=== PATIENT | male | born 1980 | race Caucasian/White ===

== ENCOUNTER 2016-06-29 11:17 | Inpatient (IN) | payer OTHER ==
[~2016-06-29] VITALS: Ht 170.2 cm; Wt 74.4 kg
[2016-06-29] MEDS ORDERED: IBUPROFEN 600 MG TABLET PO PRN (15:15)
[2016-06-29] MEDS ORDERED: LOPERAMIDE HCL 2 MG CAPSULE PO PRN ×2 (15:15)
[2016-06-29] MEDS ORDERED: LORAZEPAM 2 MG/1 ML VIAL IM PRN (15:15)
[2016-06-29] MEDS ORDERED: DICYCLOMINE HCL 20 MG TABLET PO PRN (15:15)
[2016-06-29] MEDS ORDERED: CLONIDINE HCL 0.1 MG TABLET PO PRN (15:15)
[2016-06-29] MEDS ORDERED: LORAZEPAM 1 MG TABLET PO PRN (15:15)
[2016-06-29] MEDS ORDERED: HYDROXYZINE PAMOATE 25 MG CAPSULE PO PRN (15:15)
[2016-06-29] MEDS ORDERED: ONDANSETRON 4 MG/2 ML VIAL IM PRN (15:15)
[2016-06-29] MEDS ORDERED: THIAMINE HCL 200 MG/2 ML VIAL IM ONE (15:15)
[2016-06-29] MEDS ORDERED: ACETAMINOPHEN 325 MG TABLET PO PRN (15:15)
[2016-06-29] MEDS ORDERED: MIRALAX 17 GM POWD.PACK PO PRN (15:15)
[2016-06-29] MEDS ORDERED: METHOCARBAMOL 750 MG TABLET PO PRN (15:15)
[2016-06-29] MEDS ORDERED: MAG HYDROX/AL HYDROX/SIMETH 30 ML LIQUID UDC PO PRN (15:15)
[2016-06-29] MEDS ORDERED: ONDANSETRON ODT 4 MG TAB.RAPDIS SL PRN (15:15)
[2016-06-29] MEDS ORDERED: MAGNESIUM HYDROXIDE 30 ML LIQUID UDC PO PRN (15:15)
--- NOTE | 2016-06-29 15:38 | NUR ---
ADMISSION Pt 36 y/o male from home admitted for heroin suboxone xanax adn percocet dependence. Pt alert and oriented to name, place, and time. Perrla with bilateral pupils moderately dilated. respirations even and unlabored. Bilateral hand tremors noted slightly. Pt fidgety during assessment, could not sit still, and kept moving around in bed. Pt with c/o stomach cramps. Pt also with c/o chills and sweats. Pt was seen by Dr. Beard. Initial cows=12 ciwa=8. Pt stated NKA. Pt was oriented to room and unit. Bed on lowest position with side rails x2 up fro safety. Call light within reach. Pt denies being hospitalized within the last month. pt denies any sz history. Pt denies any PCP. substance hx - heroin IV ( 20 years) 2gm daily x2 week, last used06/28/16 2+gm -suboxone SL ( 10 years) 8-12mg daily x3 months, unsure of last use, but thinks 06/15/16 with unknown dosage -xanax PO (20years) 4 mg daily x 2months, last used 06/27/16 4 mg - Percocet PO (20 years) 40mg twice a week, last used 06/29/16 40 mg. tx hx - [facility] ( unknown dates) -above it all ( stated was there for about 3 weeks, but unsure of the dates) - healing properties ( unknown dates) _ pt states has been to multiple facilities , but does not remember the names or dates he was there. 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
[2016-06-29 16:00] VITALS: BP 121/87
[2016-06-29 16:14] LABS: *AMPHETAMINE, URINE NEGATIVE (NEGATIVE); *BARBITURATE, URINE NEGATIVE (NEGATIVE); *CANNABINOID, URINE NEGATIVE (NEGATIVE); *COCCAINE, URINE NEGATIVE (NEGATIVE); *OPIATE, URINE POSITIVE (NEGATIVE); *PHENCYCLIDINE SCREEN,URINE NEGATIVE (NEGATIVE)
[2016-06-29] MEDS: BUPRENORPHINE HCL 2 MG TAB.SUBL SL PRN (16:32)
--- NOTE | 2016-06-29 16:32 | NUR ---
PRN Pt with ciwa=8. Pt observed fidgety and not able to sit still, and easily irritable. Ativan po prn per MD order given and tolerated well.
[2016-06-29] MEDS: LORAZEPAM 1 MG TABLET PO PRN (16:41)
[2016-06-29] MEDS ORDERED: diphenhydrAMINE 50 MG CAPSULE PO PRN (16:42)
--- NOTE | 2016-06-29 16:42 | NUR ---
PRN Pt with cows=12. Pt with c/o chills and sweats. Pt restless, fidgety, and not able to sit still. Pt easily irritable. Subutex po prn per MD order given and tolerated well.
--- NOTE | 2016-06-29 19:15 | NUR ---
START OF SHIFT Received 36 year old male patient admitted on 06/29/16 for Xanax, and Heroin dependency. Pt is full code and reports NKA. He reports a PMHx of concussions x4, skin graft to LLE (2015), and kidney failure in Dec 2015. He reports using Heroin IV 2 gram daily for 2 weeks. Last dose was 2 gram on 06/28/16. Suboxone SL 8-12 mg daily x3 months. Last dose on 06/15/16. Xanax PO 4 mg daily for two months. Last dose 4 mg on 06/27/16. And Percocet PO 40 mg twice a week. Last dose was 40 mg on 06/29/16. Pt with order for PRN Ativan and PRN Subutex. Per endorsement, pt received PRN Subutex for COWS:12 upon admission. Pt alert and oriented x3. Pt noted to be drowsy upon start of shift. Breathing is even and unlabored, safety measures in place. Will continue to monitor.
[2016-06-29 20:00] VITALS: BP 105/61
[2016-06-29] MEDS ORDERED: diphenhydrAMINE 50 MG CAPSULE PO SCH (21:00)
--- NOTE | 2016-06-29 21:30 | NUR ---
LAB REFUSAL Pt refused lab draw and verbalized that he wants it done in the morning.
[2016-06-29] MEDS: GABAPENTIN 300 MG CAPSULE PO SCH (21:49)
--- NOTE | 2016-06-30 | NUR ---
VITALS REFUSED/ COWS & CIWA DEFERRED. Pt refused 0000 vital signs. Explained importance of assessing vital signs every 4 hours. Risks/benefits were also explained x3, pt still refused. COWS & CIWA deferred d/t order is Q4 while awake. Breathing is even and unlabored, respirations 16. Safety measures in place. Will continue to monitor. Addendum: 06/30/16 at 0245 by DIANE WALLS RN Amended: Links added.
--- NOTE | 2016-06-30 04:00 | NUR ---
VITALS REFUSED/ COWS, CIWA DEFERRED Pt refused his 0400 vital signs. Risks and benefits were explained x3, pt still refused. COWS & AIDEWA deferred d/t order is Q4 while awake. Breathing is even and unlabored. Respirations 16, will continue to monitor.
--- NOTE | 2016-06-30 06:45 | NUR ---
LAB REFUSAL Pt refusing labs. Risks/Benefits were explained x3. Pt still refused. Will endorse to oncoming nurse.
[2016-06-30] MEDS: LORAZEPAM 1 MG TABLET PO PRN ×3 (06:53→21:27)
[2016-06-30] MEDS: BUPRENORPHINE HCL 2 MG TAB.SUBL SL PRN (06:55)
--- NOTE | 2016-06-30 06:55 | NUR ---
PRN SUBUTEX/ATIVAN Pt complains of chills/sweats, moist eyes, runny nose and body aches. VS: 115/72, HR: 85, SpO2: 100% T: 98.0. COWS:12, CIWA:7. PRN Subutex and Ativan administered as ordered. Breathing even and unlabored. Safety measures in place. Will endorse to monitor effectiveness of medications.
[2016-06-30] MEDS ORDERED: DIPH25TA62 PO (07:00)
--- NOTE | 2016-06-30 07:16 | NUR ---
END OF SHIFT Pt had uneventful night. At 0655 he received PRN Subutex and Ativan for COWS:12, CIWA: 7. He refused lab draw at 2130 and 0645. He refused 0000 and 0400 vitals signs after explaining importance of monitoring vital signs every 4 hours. He slept a total of 8 hrs, Intake: 500 mL, Void: x1, BM:0. Pt noted with no s/s of distress. Breathing is even and unlabored. Safety measures in place. Endorsed to oncoming nurse.
[2016-06-30 08:00] VITALS: BP 114/63
--- NOTE | 2016-06-30 08:11 | NUR ---
START OF SHIFT/PRN EFFECTIVENESS Received pt this am aox4 awake in bed after given PRN Subutex and Ativan. Patient states his s/s of w/d have decreased and he feels less uncomfortable as evidenced by COWS 3 and CIWA 4 at 0800. Patient reports he still has mild anxiety and chills. Patient continues on PRNs only. Patient compliant with 0800 vitals. VS WNL. Encouraged group activity and increase in fluids to facilitate his detox. Encouraged pt to notify nurse when s/s of w/d worsen. Safety measures in place. Will continue to monitor.
[2016-06-30] MEDS: GABAPENTIN 300 MG CAPSULE PO SCH ×2 (08:26→21:00)
[2016-06-30] MEDS: DOCUSATE SODIUM 250 MG CAPSULE PO SCH (08:26)
[2016-06-30] MEDS: MULTIVITAMINS,THERAPEUTIC TABLET PO SCH (08:26)
[2016-06-30] MEDS ORDERED: FOLIC ACID 1 MG TABLET PO SCH (09:00)
[2016-06-30] MEDS ORDERED: THIAMINE HCL 100 MG TABLET PO SCH (09:00)
[2016-06-30] MEDS: BUPRENORPHINE HCL 2 MG TAB.SUBL SL SCH ×3 (09:00→21:27)
[2016-06-30] MEDS ORDERED: TUBERCULIN,PURIF.PROT.DERIV. 5 TU/0.1 ML TEST ID ONE (09:00)
[2016-06-30 12:00] VITALS: BP 136/82
[2016-06-30] MEDS ORDERED: LORAZEPAM 1 MG TABLET PO PRN (13:45)
--- NOTE | 2016-06-30 14:57 | NUR ---
PRN ATIVAN 1 mg Ativan given PRN. pt c/o anxiety and sweats. CIWA 6 COWS 8. Vitals stable. Patient watching tv in bed with bed in lowest position and locked. Call lao in reach. Aox4. Will reassess.
--- NOTE | 2016-06-30 15:45 | NUR ---
PRN EFFECTIVENESS PRN Ativan effective per pt. Pt states anxiety and sweats have decreased. Pt showered as well and states he feels much better now. COWS 2 CIWA 1. Will continue to monitor.
[2016-06-30 16:00] VITALS: BP 124/87
--- NOTE | 2016-06-30 18:41 | NUR ---
END OF SHIFT Pt started 4 day Subutex taper this am. Patient given 1 mg PRN Ativan for anxiety with effectiveness. Patient compliant with vital signs and medication administration during shift. Last COWS 2 CIWA 1. TB test administered to pt today. Pt isolated himself in room most of day and had an uneventful day. Encouraged pt to attend group tomorrow and socialize with peers. All safety measures in place. Bed locked and in lowest position with call lao in reach. Will pass report to oncoming nurse.
--- NOTE | 2016-06-30 19:50 | NUR ---
START OF SHIFT Received report from day shift nurse. Pt is lying in bed resting. He is a 36 yo male admitted to [facility] on 06/29 for Heroin, Percocet, Suboxone, and Xanax dependence. He is A&O x4 and ambulatory. NKA, full code status, and on a regular diet. He has a PMH of kidney failure with dialysis, concussions, and LLE skin graft. On admission he admitted to using heroin IV 2 grams per day for the past 2 weeks, Suboxone 8-12mg per day for 3 months, Percocet 40mg twice per week, and Xanax 4mg per day for 2 months. He started a 4 day subutex taper today and is tolerating it well. He reports anxiety, back ache, nasal stuffiness and is noted to be flushed. Fall and seizure precautions in place. Bed is down with call light in reach.
[2016-06-30 20:00] VITALS: BP 119/71
[2016-06-30] MEDS: QUETIAPINE FUMARATE 100 MG TABLET PO SCH (21:27)
[2016-06-30] MEDS ORDERED: diphenhydrAMINE 50 MG CAPSULE ONE (21:51)
[2016-06-30] MEDS: diphenhydrAMINE 50 MG CAPSULE PO PRN (22:01)
--- NOTE | 2016-06-30 22:02 | NUR ---
PRN Benadryl administration Pt c/o itching related to recent hives. No hives noted. He reports a h/o hives with unknown etiology. Contacted Dr. Montoya. Orders received and carried out for PRN Benadryl.
--- NOTE | 2016-06-30 23:00 | NUR ---
PRN Benadryl reassessment PRN Benadryl effective. Pt is lying comfortably in bed resting with eyes closed. Respirations even and unlabored. Bed is down with call light in reach.
[2016-07-01] VITALS: BP 107/72
--- NOTE | 2016-07-01 07:10 | NUR ---
END OF SHIFT Report provided to day shift nurse. Pt is lying in bed resting. He is a 36 yo male admitted to [facility] on 06/29 for Heroin, Percocet, Suboxone, and Xanax dependence. He is A&O x4 and ambulatory. NKA, full code status, and on a regular diet. He has a PMH of kidney failure with dialysis, concussions and LLE skin graft. On admission he admitted to using heroin IV 2 grams per day for the past 2 weeks, Suboxone 8-12mg per day for 3 months, Percocet 40mg twice per week, and Xanax 4mg per day for 2 months. Pt experienced pruritis, anxiety, chills, and tremors. Pt continued to refused labs. Dr Montoya aware. Last COWS 9 and CIWA 8 before bed. He drank 1050mL and slept for 8 hours. Fall and seizure precautions in place. Bed is down with call light in reach.
--- NOTE | 2016-07-01 07:57 | NUR ---
START OF SHIFT Pt 36 y/o male admitted for heroin suboxone xanax and percocet dependence. Pt received in room awake. Pt alert and oriented to name, place, and time. Perrla. Respirations even and unlabored. Skin warm and slightly moist to touch. Bilateral hand tremors noted slightly. It was reported that pt slept for 8 hours last night. Bed on lowest position with side rails x2 up for safety. Call light within reach. No distress noted at this time.
[2016-07-01 08:00] VITALS: BP 129/87
[2016-07-01] MEDS ORDERED: BUPRENORPHINE HCL 2 MG TAB.SUBL SL SCH (09:00)
[2016-07-01] MEDS: DOCUSATE SODIUM 250 MG CAPSULE PO SCH (09:00)
[2016-07-01] MEDS: GABAPENTIN 300 MG CAPSULE PO SCH ×3 (09:00→21:00)
[2016-07-01] MEDS: MULTIVITAMINS,THERAPEUTIC TABLET PO SCH (09:00)
[2016-07-01] MEDS: diphenhydrAMINE 50 MG CAPSULE PO PRN ×2 (09:11→21:17)
[2016-07-01] MEDS: LORAZEPAM 1 MG TABLET PO PRN ×2 (09:11→12:59)
--- NOTE | 2016-07-01 09:11 | NUR ---
PRN Pt with ciwa=7. Pt observed anxious and easily irritable, states is experiencing chills and sweats. Ativan po prn per MD order given and tolerated well.
--- NOTE | 2016-07-01 09:12 | NUR ---
PRN Pt with c/o generalized itching. Benadryl po prn per MD order given and tolerated well.
--- NOTE | 2016-07-01 10:11 | NUR ---
PRN ciwa=2. Pt observed in room sitting on bed watching television.
--- NOTE | 2016-07-01 10:12 | NUR ---
ELIF PANCHAL Pt observed in room on bed watching television. Pt states medication is effective and denies any itchiness at this time.
[2016-07-01 12:00] VITALS: BP 122/75
[2016-07-01] MEDS: LORAZEPAM 1 MG TABLET PO SCH ×2 (14:59→21:17)
[2016-07-01] MEDS: BUPRENORPHINE HCL 2 MG TAB.SUBL SL SCH ×2 (14:59→21:17)
[2016-07-01 16:00] VITALS: BP 139/89
--- NOTE | 2016-07-01 18:29 | NUR ---
END OF SHIFT Pt 36 y/o male admitted for heroin suboxone xanax percocet dependence. Pt alert and oriented to name, place, and time. Perrla. Skin warm and slight moist to touch. Respirations even and unlabored. Bilateral hand tremors noted. Pt observed mostly isolative to room throughout the day. Pt did not attend group activity today. Pt medication compliant and tolerated well. No ASe noted. Pt was seen by Dr. Montoya today. Bed on lowest position with side rails x2 up for safety. Call light within reach. No distress noted at this time.
[2016-07-01 20:00] VITALS: BP 133/90
--- NOTE | 2016-07-01 20:10 | NUR ---
START OF SHIFT Received report from day shift nurse. Pt attended a group meeting and returned to his room after. He is a 36 yo male admitted to [facility] on 06/29 for Opiate, Suboxone, and BZD Dependence. He is A&O x4 and ambulatory. NKA, full code, and on a regular diet. He has a PMH of concussions, LLE extremity skin graft, and kidney failure with dialysis 01/08. On admission he admitted to using heroin IV 2 grams per day for 2 weeks, Percocet 40mg twice per week, subxone 8-12mg per day for 3 months, and Xanax 4mg per day for 2 months. He reports body aches, chills, mild headache, and anxiety. Pt is noted with flushed, moist skin. He started a 4 day subutex taper on 06/30 and a 3 day ativan taper today for the management of withdrawal symptoms. Fall precautions in place. Bed is down with call light in reach.
[2016-07-01] MEDS: DICYCLOMINE HCL 20 MG TABLET PO SCH (21:00)
[2016-07-01] MEDS: QUETIAPINE FUMARATE 100 MG TABLET PO SCH (21:17)
--- NOTE | 2016-07-01 21:20 | NUR ---
PRN Benadryl administration Pt c/o itching related to a h/o hives. Skin is free from hives. PRN Benadryl administered.
--- NOTE | 2016-07-02 | NUR ---
0000 Vitals deferred Pt refused to be woken for 0000 Vitals. Respirations even and unlabored. Bed is down with call light in reach.
--- NOTE | 2016-07-02 04:00 | NUR ---
0400 Vitals deferred Pt refused to be woken for 0400 Vitals. Respirations even and unlabored. Bed is down with call light in reach.
--- NOTE | 2016-07-02 07:13 | NUR ---
END OF SHIFT Report provided to day shift nurse. Pt is lying in bed resting. He is a 36 yo male admitted to [facility] on 06/29 for Opiate, Suboxone, and BZD Dependence. He is A&O x4 and ambulatory. NKA, full code, and on a regular diet. He has a PMH of concussions, LLE extremity skin graft, and kidney failure with dialysis 01/08. On admission he admitted to using heroin IV 2 grams per day for 2 weeks, Percocet 40mg twice per week, subxone 8-12mg per day for 3 months, and Xanax 4mg per day for 2 months. Pt started a 4 day subutex taper on 06/30 and a 3 day ativan taper 07/01. PRN Benadryl administered for c/o itching. Last COWS 5 and CIWA 4. He drank 1047mL and slept [address] in [address]. Bed is down with call light in reach.
[2016-07-02 08:00] VITALS: BP 139/85
--- NOTE | 2016-07-02 08:05 | NUR ---
START OF SHIFT: RECEIVED PT A/O X 4. HE REPORTS SOME HOT AND COLD SWEATS,CHILLS, MILD BODY ACHES AND ANXIETY. COWS 6 CIWA 2 MODIFIED ATIVAN AND SUBUTEX TAPER IN PROGRESS. HE STATES HE SLEPT WELL. ENCOURAGED GROUP ATTENDANCE TO IMPROVE COPING SKILLS. WILL CONTINUE TO MONITOR AND PROVIDE SUPPORT.
[2016-07-02] MEDS: DICYCLOMINE HCL 20 MG TABLET PO SCH ×2 (09:00→15:00)
[2016-07-02] MEDS: GABAPENTIN 300 MG CAPSULE PO SCH ×2 (09:00→15:00)
[2016-07-02] MEDS: MULTIVITAMINS,THERAPEUTIC TABLET PO SCH (09:01)
[2016-07-02] MEDS: DOCUSATE SODIUM 250 MG CAPSULE PO SCH (09:01)
[2016-07-02] MEDS: LORAZEPAM 1 MG TABLET PO SCH ×2 (09:01→21:51)
[2016-07-02] MEDS: BUPRENORPHINE HCL 2 MG TAB.SUBL SL SCH ×3 (09:02→21:50)
[2016-07-02] MEDS: diphenhydrAMINE 50 MG CAPSULE PO PRN ×2 (11:02→21:50)
--- NOTE | 2016-07-02 11:15 | NUR ---
PRN BENADRYL ADMINISTERED PER MD FOR REPORTED OF ITCHING.WILL MONITOR EFFECTIVENESS.
[2016-07-02 12:00] VITALS: BP 123/86
--- NOTE | 2016-07-02 12:00 | NUR ---
PT STATES THE ITCHING HAS BEEN RELIEVED.
[2016-07-02 16:00] VITALS: BP 133/86
--- NOTE | 2016-07-02 16:08 | NUR ---
PT REFUSED 1500 MEDS EXCEPT SUBUTEX. EDUCATED PT ON POTENTIAL CONEQUENCES OF REFUSING MEDS. HE EXPRESSED VEBAL UNDERSTANDING. HE STATES" I ONLY NEED THE SUBUTEX".
[2016-07-02] MEDS ORDERED: DICYCLOMINE HCL 20 MG TABLET PO PRN (19:15)
--- NOTE | 2016-07-02 19:15 | NUR ---
START OF SHIFT Received 36 year old male patient admitted on 06/29/16 for Xanax, Heroin, Percocet and Suboxone dependency. Pt is full code with seasonal allergies. He reports a PMHx of skin graft to E (2016) Kidney failure and dialysis. He reports using Xanax PO 4 mg daily for 2 months, last dose 4 mg on 06/27/16. Heroin IV 2 gram daily for 2 weeks. Last dose 2 gram on 06/28/16. Suboxone 8-12 mg daily for 3 months. Last dose on 06/15/16. And Percocet PO 40 mg daily twice a week. Last dose 40 mg on 06/29/16. Pt placed on 4 day Subutex and 3 day Ativan taper, pt tolerating well. Per endorsement, pt has been refusing medications except taper meds. is aware. Pt is alert and oriented x4, breathing is even and unlabored. Pt safe with bed locked in lowest position, side rails up x2 and call light within reach. Will continue to monitor.
--- NOTE | 2016-07-02 19:16 | NUR ---
END OF SHIFT: PT CONTINUES ON MODIFIED SUBUTEX/ATIVAN TAPER. LAST COWS 3 CIWA 1.HE REFUSED AFTERNOON MEDS EXCEPT FOR SUBUTEX. MD MADE AWARE. PRN BENADRYL GIVEN FOR ITCHING AND HE STATES IT WAS EFFECTIVE. HE ATTENDED SOME GROUPS BUT ISOLATED IN ROOM MOST OF SHIFT. HE PRESENTS WITH GUARDED AFFECT AND ANXIOUS MOOD. HE STATES HE DOESN'T NEED ANY OTHER MEDS EXCEPT SUBUTEX,ATIVAN AND BENADRYL. EDUCATION PROVIDE REGARDING REFUSING MEDS. WILL PASS SHIFT REPORT TO ONCOMING NIGHT NURSE.
[2016-07-02 20:00] VITALS: BP 139/94
[2016-07-02] MEDS: QUETIAPINE FUMARATE 100 MG TABLET PO SCH (21:50)
--- NOTE | 2016-07-02 21:50 | NUR ---
PRN BENADRYL Pt complains of feeling of itchiness all over body d/t seasonal allergies. PRN Benadryl administered as ordered. Breathing even and unlabored, safety measures in place. Will continue to monitor effectiveness.
--- NOTE | 2016-07-02 22:50 | NUR ---
PRN BENADRYL REASSESSMENT Pt reports decrease in itchiness, pt lying in bed watching TV. Breathing is even and unlabored, safety measures in place. Will continue to monitor.
[2016-07-03] VITALS: BP 128/81
--- NOTE | 2016-07-03 04:00 | NUR ---
VITALS REFUSED, COWS/CIWA DEFERRED 0400 vitals refused by pt. Risks and benefits were explained x3, pt still refused. COWS/CIWA deferred d/t order is Q4H while awake. Pt lying in bed with eyes closed, drowsy and unable to assess. Breathing is even and unlabored, respirations 16. Safety measures in place. Will continue to monitor.
--- NOTE | 2016-07-03 07:09 | NUR ---
Start of Shift Endorsement received from nightshift nurse. Pt is a 36 y/o male admitted for heroin, Suboxone, Xanax and Percocet dependence. Pt has been placed on a 4 day Subutex and 3 day Ativan taper. Pt is tolerating the taper well at this time AEB COWS 2, CIWA 1 at 2100. Pt received PRN Benadryl during nightshift. VS WNL, Full Code. Pt slept 8 hours. PT is alert and oriented x4. Pt is in STABLE condition at this time. Remains compliant with medication and diet regimen. All needs have been met, All safety measures in place per hospital policy. Bed in lowest position, side rails up x2, call-light within reach. Will continue to monitor
--- NOTE | 2016-07-03 07:13 | NUR ---
END OF SHIFT Pt remained stable. Pt had uneventful night. He received PRN medication of Benadryl at 2150 d/t complaints of generalized itchiness. PRN medication was effective. Pt refused 0400 vitals. Risks and benefits were explained x3, pt still refused. He slept a total of 8 hrs, Intake:1153 mL Void: x3 BM: 0, COWS:2 CIWA:1 at 0000. Pt remains alert and oriented x4, breathing is even and unlabored, safety measures in place. Will endorse to oncoming shift.
[2016-07-03 08:00] VITALS: BP 111/77
[2016-07-03] MEDS ORDERED: LORAZEPAM 1 MG TABLET PO SCH (09:00)
[2016-07-03] MEDS ORDERED: BUPRENORPHINE HCL 2 MG TAB.SUBL SL SCH (09:00)
[2016-07-03] MEDS: DOCUSATE SODIUM 250 MG CAPSULE PO SCH ×2 (09:00→09:23)
[2016-07-03] MEDS: MULTIVITAMINS,THERAPEUTIC TABLET PO SCH ×2 (09:00→09:24)
[2016-07-03] MEDS: diphenhydrAMINE 50 MG CAPSULE PO PRN ×2 (09:27→21:09)
[2016-07-03 12:00] VITALS: BP 121/90
[2016-07-03] MEDS ORDERED: QUET100T PO (14:40)
[2016-07-03] MEDS ORDERED: DIPH50CA37 PO (14:40)
[2016-07-03] MEDS ORDERED: TRAZ-144 PO (14:40)
[2016-07-03 16:00] VITALS: BP 110/74
[2016-07-03 17:27] LABS: *AMPHETAMINE, URINE NEGATIVE (NEGATIVE); *BARBITURATE, URINE NEGATIVE (NEGATIVE); *CANNABINOID, URINE NEGATIVE (NEGATIVE); *COCCAINE, URINE NEGATIVE (NEGATIVE); *OPIATE, URINE NEGATIVE (NEGATIVE); *PHENCYCLIDINE SCREEN,URINE NEGATIVE (NEGATIVE)
--- NOTE | 2016-07-03 19:15 | NUR ---
START OF SHIFT Received 36 year old male patient admitted on 06/29/16 for Xanax, Heroin, Percocet and Suboxone dependency. Pt is full code with seasonal allergies. Pt placed on 4 day Subutex started on 06/30/16 and 3 day Ativan taper started on 07/01/16 and tolerating well. Per endorsement, pt is scheduled to be DC tomorrow to [facility]. Pt did not receive or request PRN medications. Pt is alert and oriented x4, breathing is even and unlabored. Pt safe with bed locked in lowest position, side rails up x2 and call light within reach. Will continue to monitor.
--- NOTE | 2016-07-03 19:27 | NUR ---
End of Shift Endorsement given to nightshift nurse. Pt is a 36 y/o male admitted for heroin, Suboxone, Xanax and Percocet dependence. Pt has been placed on a 4 day Subutex and 3 day Ativan taper. Pt is tolerating the taper well at this time AEB COWS 2, CIWA 0 at 1600. Pt did not receive any PRN medications. Pt is scheduled to be discharged on 07/04/16. All documentation has been completed, urine has been collected and sent to lab. Intake: 2495ml, Void x4, BM x1. VS WNL, Full Code. PT is alert and oriented x4. Pt is in STABLE condition at this time. Remains compliant with medication and diet regimen. All needs have been met, All safety measures in place per hospital policy. Bed in lowest position, side rails up x2, call-light within reach. Will continue to monitor
[2016-07-03] MEDS ORDERED: TRAZODONE 50 MG TABLET PO PRN (19:30)
[2016-07-03 20:00] VITALS: BP 135/90
[2016-07-03] MEDS: QUETIAPINE FUMARATE 100 MG TABLET PO SCH (21:09)
--- NOTE | 2016-07-03 21:09 | NUR ---
PRN BENADRYL Pt complains of generalized itchiness d/t seasonal allergies. PRN Benadryl administered as ordered. Breathing is even and unlabored, safety measures in place. Will continue to monitor effectiveness.
--- NOTE | 2016-07-03 22:09 | NUR ---
PRN BENADRYL REASSESSMENT PRN medication effective. Pt reports relief from itchiness. Breathing is even and unlabored, respirations 16, safety measures in place. Will continue to monitor.
--- NOTE | 2016-07-03 22:13 | NUR ---
PRN TRAZODONE Pt complains of inability to fall asleep. PRN Trazodone administered as ordered. Breathing is even and unlabored, safety measures in place. Will continue to monitor effectiveness of medication.
--- NOTE | 2016-07-03 23:13 | NUR ---
PRN TRAZODONE REASSESSMENT PRN medication effective. Pt lying in bed with eyes closed noted to be asleep. Breathing is even and unlabored, respirations 16. Safety measures in place. Will continue to monitor.
--- NOTE | 2016-07-04 | NUR ---
VITALS REFUSED, COWS/CIWA DEFERRED 0000 vitals were refused by pt. Pt stated he does not want vitals taken. Risks and benefits explained x3, pt still refused. COWS/CIWA deferred d/t order is Q4H while awake. Pt lying in bed, drowsy and unable to assess at this time. Breathing is even and unlabored, respirations [address] Will continue to monitor Addendum: 07/04/16 at 0419 by DIANE WALLS RN Amended: Links added.
--- NOTE | 2016-07-04 04:00 | NUR ---
VITALS REFUSED, CIWA/COWS DEFERRED 0400 vitals were refused by pt. Pt stated he does not want vitals taken. Risks and benefits explained x3, pt still refused. COWS/CIWA deferred d/t order is Q4H while awake. Pt lying in bed, drowsy and unable to assess at this time. Breathing is even and unlabored, respirations [address] Will continue to monitor pt. Addendum: 07/04/16 at 0424 by DIANE WALLS RN Amended: Links added.
--- NOTE | 2016-07-04 07:12 | NUR ---
END OF SHIFT Pt remained stable and had uneventful night. He received PRN Benadryl d/t itchiness and PRN Trazodone d/t inability to sleep. PRN medications were effective. He is schedule to be DC today to [facility]. He slept a total of 5 hrs, Intake: 1091 mL, Void: x2, BM:0. COWS:2, CIWA: 1 at 1999. Pt remains alert and oriented x4, breathing is even and unlabored, safety measures in place, endorsed to AM shift.
--- NOTE | 2016-07-04 07:15 | NUR ---
Start of shift note Pt was admitted for opiate and benzo dependence. Pt has no PMH. Pt has completed a subutex and ativan taper. Pt is a full code, on a regular diet and has NKA. Pt is scheduled to discharge today. Pt has no complaints at this time. Pt states that he feels ready for discharge. Will continue to monitor pt.
[2016-07-04 08:00] VITALS: BP 104/64
[2016-07-04] MEDS: DOCUSATE SODIUM 250 MG CAPSULE PO SCH (08:34)
[2016-07-04] MEDS: diphenhydrAMINE 50 MG CAPSULE PO PRN (08:34)
[2016-07-04] MEDS: MULTIVITAMINS,THERAPEUTIC TABLET PO SCH (08:34)
--- NOTE | 2016-07-04 09:15 | NUR ---
PRN administration/refusal of meds pt refused colace and vitamin. Administered benadryl for itching. Will continue to monitor pt.
--- NOTE | 2016-07-04 10:15 | NUR ---
Reassessment pt states that the benadryl was effective.
--- NOTE | 2016-07-04 10:25 | NUR ---
Discharge Note pt was admitted for opiate and benzo dependence. Pt completed his taper without any ASE. Pt has a recent COWS and CIWA of 0. VS are WNL. Pt states that he feels ready for discharge. Pt did not want his vitamin or colace this morning. Pt had a PRN benadryl with effectiveness. Pt denies SI/HI. LBM was 07/04/16. Pt medications, prescriptions, and all belongings returned to pt. Pt ID band removed, pt ambulated off of unit with [facility], left facility via [facility] for [facility].
== END 2016-07-04 10:25 | disposition other institution (70) | DRG 895 ==
LOC: SRC 14:53
PROVIDERS: ADMIT Internal Medicine; ATTEND Internal Medicine
PROC: HZ2ZZZZ Detoxification Services for Substance Abuse Treatment (ICD-10-PCS; principal; 2016-06-29)
PROC: HZ31ZZZ Individual Counseling for Substance Abuse Treatment, Behavioral (ICD-10-PCS; 2016-06-30)
PROC: HZ41ZZZ Group Counseling for Substance Abuse Treatment, Behavioral (ICD-10-PCS; 2016-07-02)
DX: F11.23 Opioid dependence with withdrawal (principal); F13.230 Sedative, hypnotic or anxiolytic dependence with withdrawal, uncomplicated; F41.9 Anxiety disorder, unspecified; Z91.19 Patient's noncompliance with other medical treatment and regimen; F17.210 Nicotine dependence, cigarettes, uncomplicated; Z94.5 Skin transplant status; Z79.899 Other long term (current) drug therapy; G47.00 Insomnia, unspecified
CPT/HCPCS: 70030-TC; 80307; 80361; 86580; Q0163